=== PATIENT | male | born 1995 | race Native Hawaiian/Other Pacific Islander ===

== ENCOUNTER 2023-03-21 20:22 | Emergency (ER) | payer OTHER ==
[~2023-03-21] VITALS: Ht 180.3 cm; Wt 73.5 kg
[2023-03-21 20:28] VITALS: TEMP 97.2
[2023-03-21 21:55] VITALS: BP 138/87
[2023-03-21] MEDS ORDERED: KETO10TA34 PO (22:03)
[2023-03-21] MEDS ORDERED: AMOX500C85 PO (22:03)
== END 2023-03-21 21:55 | disposition home or self-care (01) ==
LOC: ED 20:22
DX: R68.84 Jaw pain (principal); K08.89 Other specified disorders of teeth and supporting structures; K04.7 Periapical abscess without sinus; K02.9 Dental caries, unspecified
CPT/HCPCS: 96372; 99282; J1885